=== PATIENT | female | born 1985 | race Hispanic/Latino ===

== ENCOUNTER 2023-11-18 23:50 | Inpatient (IN) | payer SELFPAY ==
[2023-11-19 00:43] VITALS: BMI 31.6
[2023-11-19 00:57] LABS: Fetal Membranes Rupture RUPTURE DETECTED (No Rupture)
[2023-11-19] MEDS ORDERED: fentaNYL 50 mcg/mL 1 mL Vial SLOW IVP PRN (01:51)
[2023-11-19] MEDS ORDERED: Tranexamic Acid 1,000 MG/10 ML VIAL IVP PRN (01:52)
[2023-11-19] MEDS ORDERED: Diphenoxylate HCl/Atropine Tablet PO PRN ×2 (02:00)
[2023-11-19] MEDS ORDERED: Lidocaine 1% (PF) 30 ML VIAL SC PRN (02:00)
[2023-11-19] MEDS ORDERED: Ibuprofen 800 MG TAB PO PRN (02:00)
[2023-11-19] MEDS ORDERED: Carboprost 250 MCG/ML AMP IM PRN (02:00)
[2023-11-19] MEDS ORDERED: Oxytocin 30 units/NS 500 ML 500 ML IV SCH (02:00)
[2023-11-19] MEDS ORDERED: Misoprostol 200 MCG TAB RC PRN (02:00)
[2023-11-19] MEDS ORDERED: hydrALAZINE 20 MG/ML VIAL SLOW IVP PRN ×2 (02:00→13:38)
[2023-11-19] MEDS ORDERED: Methylergonovine 0.2 MG/ML VIAL IM PRN (02:00)
[2023-11-19] MEDS ORDERED: Ondansetron PF 4 MG/2 ML Vial IVP PRN ×3 (02:00→13:38)
[2023-11-19] MEDS ORDERED: Promethazine HCl 25 MG/ML VIAL IM PRN ×3 (02:00→13:38)
[2023-11-19] MEDS ORDERED: Oxytocin 30 units/NS 500 ML 500 ML IVPB SCH (02:00)
[2023-11-19] MEDS ORDERED: Lactated Ringer's 1,000 ML IV SCH (02:00)
[2023-11-19] MEDS ORDERED: fentaNYL/Ropivacaine Epidural 100 ML ONE (03:10)
[2023-11-19 03:15] LABS: Hematocrit 38.6 % (34.9-44.5); Hemoglobin 12.4 g/dL (12.0-15.5); Mean Corpuscular HGB CONC 32.1 g/dL (32.0-36.0); Mean Corpuscular Hemoglobin 25.1 pg (27.0-33.0); Mean Corpuscular Volume 78.1 fl (81.6-98.3); Platelet Count 116 10x3/uL (150-450); RBC Distribution Width 15.8 % (11.5-14.5); Red Blood Cell (RBC) Count 4.94 10x6/uL (3.90-5.03); White Blood Cell (WBC) Count 9.8 10x3/uL (3.5-10.5)
[2023-11-19 03:24] LABS: HBSAg Index 0.18 S/CO (0-0.99); Hep B Surf Ag - L&D Non-Reactive S/CO (NonReactive); Syphilis Antibody Nonreactive (Nonreactive); Syphilis Antibody Index 0.07 S/CO (<1.00 Non-Reactive)
[2023-11-19] MEDS ORDERED: ePHEDrine Sulfate 50 MG/10 ML VIAL SLOW IVP PRN (03:56)
[2023-11-19] MEDS ORDERED: Lactated Ringer's 500 ML IV PRN (03:56)
[2023-11-19] MEDS ORDERED: diphenhydrAMINE 50 MG/ML VIAL IVP PRN (03:56)
[2023-11-19] MEDS ORDERED: Acetaminophen 325 MG TAB PO PRN (03:56)
[2023-11-19] MEDS ORDERED: Moisturizing Cream (Eucerin) 113 GM JAR TOP PRN (03:56)
[2023-11-19] MEDS ORDERED: Naloxone HCl 0.4 mg/ml Vial IVP PRN ×2 (03:56)
[2023-11-19] MEDS ORDERED: Communication Order-Pharmacy FS SCH (04:00)
[2023-11-19] MEDS ORDERED: fentaNYL 2 mcg/Ropivacaine 0.2% Epidural 100 ML CADD EPIDURAL SCH (04:00)
[2023-11-19] MEDS: Lactated Ringer's 1,000 ML IV SCH ×2 (04:24→13:40)
[2023-11-19] MEDS ORDERED: CEFAZOLIN 2 GM VIAL ONE (11:45)
[2023-11-19] MEDS ORDERED: CEFAZOLIN 2 GM in Sodium Chloride 0.9% 100 ML IVPB SCH (12:15)
[2023-11-19] MEDS ORDERED: Gentamicin 400 MG in Sodium Chloride 0.9% 100 ML IVPB SCH (13:00)
[2023-11-19] MEDS ORDERED: Clindamycin/D5W 900 MG in Premix 1 BAG IVPB SCH (13:00)
[2023-11-19] MEDS ORDERED: Boostrix 0.5 ML (Tdap) VIAL (>/=7 yrs of age) IM ONE (13:38)
[2023-11-19] MEDS ORDERED: diphenhydrAMINE 25 MG CAP PO PRN (13:38)
[2023-11-19] MEDS ORDERED: Bisacodyl 10 MG SUPP PR PRN (13:38)
[2023-11-19] MEDS ORDERED: Preparation H Ointment 28 GM TUBE PR PRN (13:38)
[2023-11-19] MEDS ORDERED: Lanolin Ointment 7 GM TUBE TOP PRN (13:38)
[2023-11-19] MEDS ORDERED: Benzocaine-Menthol 82.5 ML CAN TOP PRN (13:38)
[2023-11-19] MEDS ORDERED: HYDROcodone/Acetaminophen 5/325 mg Tablet PO PRN ×2 (13:38)
[2023-11-19] MEDS ORDERED: Milk Of Magnesia 30 ML UDCUP PO PRN (13:38)
[2023-11-19] MEDS: Ibuprofen 800 MG TAB PO SCH ×2 (14:59→21:19)
[2023-11-19] MEDS: Ferrous Sulfate 325 MG TAB PO SCH (17:42)
[2023-11-19] MEDS: Docusate 100 MG CAP PO SCH (21:19)
[2023-11-20] MEDS: Ferrous Sulfate 325 MG TAB PO SCH ×2 (07:12→15:37)
[2023-11-20] MEDS: Ibuprofen 800 MG TAB PO SCH ×2 (08:01→14:04)
[2023-11-20 08:07] VITALS: TEMP 98.3
[2023-11-20] MEDS ORDERED: Prenatal Vitamin 1 TAB PO SCH (09:00)
[2023-11-20 11:59] VITALS: BP 124/71
[2023-11-20] MEDS: Docusate 100 MG CAP PO SCH (12:30)
[2023-11-20] MEDS ORDERED: Gentamicin 400 MG in Sodium Chloride 0.9% 100 ML IVPB SCH (14:00)
== END 2023-11-20 15:30 | disposition home or self-care (01) | DRG 807 ==
LOC: CSHLD/OP 23:50 → CSHLD 11-19 01:32 → CSHPP 11-19 13:40
PROVIDERS: ADMIT Student in an Organized Health Care Education/Training Program; ATTEND Student in an Organized Health Care Education/Training Program
PROC: 10E0XZZ Delivery of Products of Conception, External Approach (ICD-10-PCS; principal; 2023-11-19)
PROC: 10E0XZZ Delivery of Products of Conception, External Approach (ICD-10-PCS; 2023-11-19)
DX: O42.02 Full-term premature rupture of membranes, onset of labor within 24 hours of rupture (principal); Z37.0 Single live birth; O69.81X0 Labor and delivery complicated by cord around neck, without compression, not applicable or unspecified; Z88.0 Allergy status to penicillin; Z88.5 Allergy status to narcotic agent; Z88.1 Allergy status to other antibiotic agents; Z91.013 Allergy to seafood; Z3A.40 40 weeks gestation of pregnancy
CPT/HCPCS: 51702; 84112; 85027; 86780; 86850; 86900; 86901; 87340; 99285; J1580; J2405; J2590; J3010; J3490; J7120

== ENCOUNTER 2025-08-11 13:17 | Emergency (ER) | payer SELFPAY ==
[2025-08-11 13:57] LABS: #Basophils 0.03 10x3/uL (0.0-0.2); #Eosinophils 0.12 10x3/uL (0.0-0.5); #Monocytes 0.28 10x3/uL (0.0-1.1); #Neutrophils 4.28 10x3/uL (1.5-8.4); %Basophils 0.5 % (0.0-2.0); %Eosinophils 1.9 % (0.0-6.0); %Lymphocytes 23.9 % (18.0-47.0); %Monocytes 4.5 % (0.0-10.0); %Neutrophils 68.7 % (40.0-75.0); Hematocrit 27.5 % (34.9-44.5); Hemoglobin 7.4 g/dL (12.0-15.5); Mean Corpuscular Hemoglobin 17.0 pg (27.0-33.0); Mean Corpuscular Volume 63.2 fL (81.6-98.3); Platelet Count 212 10x3/uL (150-450); Red Blood Cell (RBC) Count 4.35 10x6/uL (3.90-5.03); White Blood Cell (WBC) Count 6.23 10x3/uL (3.5-10.5)
[2025-08-11 14:00] LABS: ALT (SGPT) 11 U/L (Less than 34); AST (SGOT) 21 U/L (11-34); Albumin 4.2 g/dL (3.1-4.5); Alkaline Phosphatase 93 U/L (40-110); Anion Gap 10 mmol/L (10-20); BUN (Urea Nitrogen) 9 mg/dL (7.0-18.7); Bilirubin, Total 0.4 mg/dL (0.3-1.2); Calc. Creatinine Clearance 0 mL/min (70-130); Calcium 9.2 mg/dL (7.8-10.44); Carbon Dioxide 26 mmol/L (22-29); Chloride 105 mmol/L (98-107); Globulin 3.7 g/dL (2.4-3.5); Glucose 146 mg/dL (70-105); Potassium 3.3 mmol/L (3.5-5.1); Sodium 138 mmol/L (136-145)
[2025-08-11 14:55] LABS: Microcytosis SLIGHT = 6-15 cells (100X) (0-5/hpf); Ovalocytes SLIGHT = 2-5 cells (100X) (0-1/hpf)
[2025-08-11 14:59] LABS: Platelet Adequacy Comment Platelets Normal
[2025-08-11 15:00] LABS: Reflex for Review?? YES
[2025-08-11] MEDS ORDERED: Acetaminophen 500 MG TAB ONE (19:18)
== END 2025-08-11 19:35 | disposition home or self-care (01) ==
LOC: CSHERS 13:17
DX: D50.9 Iron deficiency anemia, unspecified (principal)
CPT/HCPCS: 36416; 36430; 80053; 85025; 85060; 86850; 86900; 86901; 99284; P9016